=== PATIENT | female | born 1980 | race Caucasian/White ===

== ENCOUNTER 2019-02-18 09:15 | Inpatient (IN) | payer OTHER ==
[~2019-02-18] VITALS: Ht 168 cm; Wt 78.3 kg
[2019-02-18 10:07] VITALS: BP 114/65
[2019-02-18] MEDS ORDERED: PREN-217 PO (10:09)
[2019-02-18] MEDS ORDERED: RINGERS SOLUTION,LACTATED 1,000 ML IV ONE (10:15)
[2019-02-18] MEDS ORDERED: MONISTAT (10:53)
[2019-02-18] MEDS ORDERED: BUSCAPINA PO (10:55)
[2019-02-18] MEDS ORDERED: OXYTOCIN 30 UNITS/LACT RINGERS 500 ML IV ONE (11:04)
[2019-02-18] MEDS ORDERED: RINGERS SOLUTION,LACTATED 1,000 ML IV PRN (11:04)
[2019-02-18] MEDS ORDERED: CITRIC ACID/SODIUM CITRATE 30 ML SOLUTION UDCUP PO PRN (11:15)
[2019-02-18] MEDS ORDERED: METHYLERGONOVINE MALEATE 0.2 MG/ML VIAL IM PRN (11:15)
[2019-02-18] MEDS ORDERED: CARBOPROST TROMETHAMINE 250 MCG/ML AMP IM PRN (11:15)
[2019-02-18] MEDS ORDERED: LIDOCAINE/PF 1% 30 ML VIAL INJ PRN (11:15)
[2019-02-18] MEDS ORDERED: METOCLOPRAMIDE HCL 5 MG/ML 2 ML VIAL IVP PRN (11:15)
[2019-02-18] MEDS: OXYTOCIN 30 UNITS/LACT RINGERS 500 ML IV PRN ×2 (11:24→11:54)
[2019-02-18] MEDS ORDERED: ROPIVACAINE HCL/PF 0.2% 100 ML ED ONE (11:59)
[2019-02-18] MEDS ORDERED: BUPIVACAINE 0.25%/EPI 1:200,000/PF 10 ML VIAL ONE (11:59)
[2019-02-18 12:00] LABS: BASOPHILS % (AUTO) 0.4 % (0.0-2.0); EOSINOPHILS % (AUTO) 0.3 % (1.0-6.0); HEMATOCRIT 36.2 % (36-46); HEMOGLOBIN 12.2 g/dL (12.0-16.0); LYMPHOCYTES # (AUTO) 2.1 K/uL (1.0-4.8); LYMPHOCYTES % (AUTO) 26.1 % (22.0-44.0); MEAN CORPUSCULAR HEMOGLOBIN 31.1 pg (26.0-34.0); MEAN CORPUSCULAR HGB CONC 33.8 G/dL (31.0-37.0); MEAN CORPUSCULAR VOLUME 92 fL (80-100); MONOCYTES # (AUTO) 0.5 K/uL (0.1-1.0); MONOCYTES % (AUTO) 6.2 % (2.0-9.0); NEUTROPHILS # (AUTO) 5.4 K/uL (1.8-7.7); PLATELET COUNT (AUTO)-OB 158 K/uL (150-450); RED BLOOD CELL COUNT(AUTO) 3.94 MIL/uL (4.00-5.20); RED CELL DISTRIBUTION WIDTH 14.1 % (11.5-14.5)
[2019-02-18] MEDS: RINGERS SOLUTION,LACTATED 1,000 ML IV SCH ×2 (12:54→14:00)
[2019-02-18] MEDS ORDERED: LANOLIN 7 GM OINTMENT TP PRN (15:45)
[2019-02-18] MEDS ORDERED: GLYCERIN/WITCH HAZEL LEAF 40 PADS JAR TP PRN (15:45)
[2019-02-18] MEDS ORDERED: ACETAMINOPHEN/CODEINE 300-30 MG TABLET PO PRN (15:45)
[2019-02-18] MEDS: BENZOCAINE 20%/MENTHOL 56 GM SPRAY CANISTER TP PRN ×2 (17:17→17:18)
[2019-02-18] MEDS: IBUPROFEN 800 MG TABLET PO SCH ×2 (17:17→23:40)
[2019-02-18] MEDS ORDERED: OXYGEN THERAPY IH SCH (20:00)
[2019-02-18] MEDS: MAGNESIUM HYDROXIDE SUSPENSION 30 ML UDCUP PO SCH (21:17)
[2019-02-19] MEDS: IBUPROFEN 800 MG TABLET PO SCH ×2 (05:37→12:13)
[2019-02-19] MEDS: MAGNESIUM HYDROXIDE SUSPENSION 30 ML UDCUP PO SCH (08:32)
[2019-02-19] MEDS: ACETAMINOPHEN/CODEINE 300-30 MG TABLET PO PRN ×2 (08:42→16:11)
[2019-02-19] MEDS ORDERED: IBUP-2071 PO ×2 (11:35→11:36)
[2019-02-19] MEDS ORDERED: DSS100 PO (11:37)
[2019-02-19] MEDS ORDERED: SENNA/DOCUSATE SODIUM 8.6-50 MG TABLET PO ONE (13:00)
== END 2019-02-19 17:55 | disposition home or self-care (01) | DRG 807 ==
LOC: OBSVTOIN 09:15 → 4S 09:15
PROVIDERS: ADMIT Obstetrics & Gynecology; ATTEND Obstetrics & Gynecology
PROC: 10E0XZZ Delivery of Products of Conception, External Approach (ICD-10-PCS; principal; 2019-02-18)
PROC: 0HQ9XZZ Repair Perineum Skin, External Approach (ICD-10-PCS; 2019-02-18)
PROC: 3E0R3BZ Introduction of Anesthetic Agent into Spinal Canal, Percutaneous Approach (ICD-10-PCS; 2019-02-18)
PROC: 00HU33Z Insertion of Infusion Device into Spinal Canal, Percutaneous Approach (ICD-10-PCS; 2019-02-18)
DX: O70.0 First degree perineal laceration during delivery (principal); Z37.0 Single live birth; Z3A.38 38 weeks gestation of pregnancy
CPT/HCPCS: 86850; 86900; 86901; J2590; J2795; J3490; J7120